=== PATIENT | male | born 1950 | race Caucasian/White ===

== ENCOUNTER 2017-05-13 13:11 | Emergency (ER) | payer OTHER ==
--- NOTE | 2017-05-13 13:39 | EDM.PDOC ---
ED HPI GENERAL MEDICAL PROBLEM - General Chief Complaint: Head Injury Stated Complaint: DIZZINESS/VISION ISSUES Time Seen by Provider: 05/13/17 13:30 Source of Information: Reports: Patient History Limitations: Reports: No Limitations - History of Present Illness INITIAL COMMENTS - FREE TEXT/NARRATIVE: 67-year-old male reports that he is not exactly sure what caused him to either pass out or trip and fall while on his way to the shower at about 1800 hrs. April 24. He states he woke up on the floor and was unsure how he got there. He states alcohol was not involved. He had obviously fallen and suffered injury to his right forehead area neck was very tender and sore particularly on the left side skin and up his left elbow is his ribs. He states he essentially had to lay in bed for the next 3 days due to the severity of the headaches and associated nausea. He never did vomit. After 3 days he was able to tolerate the light a bit better and able to get up and move around. He subsequently states that his vision is transiently blurry at times. He wears glasses only for reading. He said previous cataract surgery bilaterally. States his neck pain is gone away completely. States skin tear on his left elbow is healed up. He continues to have quite severe headaches and this reason that brought him to the ED. He has been taking Motrin and vitamin E for headache relief. He states he can write fine he can read okay. States that it's difficult to concentrate at times. He is driving a motor vehicle with no problems. Onset: Sudden Onset Date: 04/24/17 Onset Time: 18:00 (Unclear what caused him to trip and fall or pass out and hit the floor on his way to the shower in his home.) Duration: Minutes: (He believes he lost consciousness for at least 10 minutes.) Location: Reports: Head, Neck, Upper Extremity, Left (Left elbow) Quality: Reports: Other (Only problem that persists is recurrent severe headaches.) Severity: Severe (Intermittent severe headaches) Improves with: Reports: Medication, Rest (Motrin has been helping. Rest also helps. Massaging his) Worsens with: Reports: Movement (Exertion.) Context: Reports: Trauma (Tripped and fell on his way to the shower or loss consciousness/syncopal event 20 days ago). Denies: Activity, Exercise, Lifting , Sick Contact Associated Symptoms: Reports: Confusion, Nausea/Vomiting, Syncope (Possible reason for him to have passed out and hit the floor outside the shower 20 days ago. Wound was there to witness the event.). Denies: Chest Pain (Initially but this is now better.), Cough, cough w sputum, Diaphoresis, Fever/Chills, Headaches, Loss of Appetite, Malaise, Rash (Is very nauseated for the first 3 days but never did vomit. He has had mild intermittent nausea since but better the last for 5 days.), Seizure, Shortness of Breath Treatments [employer]: Reports: NSAIDS (Typically using Motrin when necessary and vitamin E.) - Related Data Allergies Allergy/AdvReac Type Severity Reaction Status Date / Time No Known Allergies Allergy Verified 05/13/17 13:22 Home Meds: Home Meds Cyclobenzaprine [Flexeril] 1 tab PO Q8HR PRN 05/13/17 [History] FLUoxetine [PROzac] 20 mg PO DAILY 05/13/17 [History] Past Medical History HEENT History: Reports: Glaucoma (Chronic glaucoma), Other (See Below) (Has had bilateral cataract extractions and intraocular lens implants. Also has had bilateral trabeculectomy is for glaucoma and is on to glaucoma medications.) Musculoskeletal History: Reports: Arthritis, Osteoarthritis Social & Family History - Living Situation & Occupation Living situation: Reports: Alone Occupation: Retired ED ROS GENERAL - Review of Systems Review Of Systems: See Below Constitutional: Reports: Malaise, Weakness, Fatigue, Decreased Appetite. Denies : Fever, Chills, Weight Loss HEENT: Reports: Glasses (Transient blurred vision. Wears them occasionally to read.), Vision Change Respiratory: Reports: No Symptoms Cardiovascular: Reports: No Symptoms. Denies: Chest Pain, Blood Pressure Problem ([facility] and has never been told his blood pressures been elevated.), Claudication, Dyspnea on Exertion, Edema, Lightheadedness, Orthopnea Endocrine: Reports: Fatigue GI/Abdominal: Reports: Nausea (Transient nausea after closed head injury but better the last week.) : Reports: Frequency, Other Musculoskeletal: Reports: Joint Pain (Nocturia usually twice tonight per night. Knees hips given intermittent pain.) Skin: Reports: Bruising (Appreciates that he bruises easily. He is not on any blood thinners.) Neurological: Reports: Dizziness, Headache (Headaches are still quite severe particularly temporal and across the frontal). Denies: Confusion, Numbness ( scalp.), Tingling, Tremors, Trouble Speaking, Difficulty Walking, Weakness, Change in Speech, Gait Disturbance Psychiatric: Reports: Mood Lability. Denies: Agitation, Anxiety, Confusion, Cravings, Depression, Homicidal Ideation, Suicidal Ideation Hematologic/Lymphatic: Reports: No Symptoms Immunologic: Reports: No Symptoms (Appreciates that he is on a bit of an emotional roller coaster.) ED EXAM, HEAD INJURY - Physical Exam Exam: See Below Exam Limited By: No Limitations General Appearance: Alert, WD/WN, No Apparent Distress Head: Atraumatic, Normocephalic, Other (No residual swelling or ecchymoses identified on the scalp. Still perhaps a little tender along the temporal scalp on the right side.) Nexus Criteria: No: Posterior, Midline Cervical Tenderness, Evidence of Intoxication, Altered Level of Consciousness, Focal Neurological Deficit, Painful Distraction Injuries Eyes: Bilateral Eye: Normal Inspection (Bilateral cataract extractions and intraocular lenses are apparent.), PERRL Ears: Normal TMs (No blood behind the tympanic membranes.) Throat/Mouth: Normal Lips, Normal Teeth, Normal Oropharynx, Other Neck: Non-Tender (Uvula is midline), Full Range of Motion, Normal Alignment, Normal Inspection Respiratory: No Respiratory Distress, Lungs Clear, Normal Breath Sounds, Chest Non-Tender Cardiovascular: Normal Peripheral Pulses, Regular Rate, Rhythm, No Edema, No Gallop, No Murmur GI/Abdominal Exam: Normal Bowel Sounds, Soft, Non-Tender, No Organomegaly, No Abnormal Bruit, No Mass, Pelvis Stable Back Exam: Normal Inspection, Full Range of Motion. No: CVA Tenderness (L), CVA Tenderness (R) Extremities: Normal Inspection, Normal Range of Motion, Non-Tender, No Pedal Edema, Other (Has a healing wound on his left elbow scab is now gone. There is slight pinkish skin where he suffered a skin tear.) Neurologic: director of strategic sourcing II-XII nml As Tested, No Motor/Sensory Deficits, Alert, Normal Mood/Affect, Oriented x 3, Other (No pronator drift. Finger to nose assessment normal. No pronator drift.) Skin: Normal Color, Warm/Dry - Converse Coma Score Best Eye Response (Kimberly): (4) Open Spontaneously Best Verbal Response (Kimberly): (5) Oriented Best Motor Response (Converse): (6) Obeys Commands Converse Total: 15 Course - Vital Signs Last Recorded V/S: Last Vital Signs Temp 36.4 C 05/13/17 13:19 Pulse 65 05/13/17 13:19 Resp 16 05/13/17 13:19 BP 162/98 H 05/13/17 13:19 Pulse Ox 100 05/13/17 13:19 - Radiology Interpretation Free Text/Narrative:: 67-year-old male attends the ED 20 days post either syncopal event or trip and fall with closed head injury while traveling into his shower at his home. Injury occurred approximate 1800 hrs. April 24. He woke up on the floor and does not know how he got there. He had a large hematoma over his left frontal scalp. He contused his left elbow bruised up his left shoulder and left hip. He also had quite significant cervical neck pain for 3 or 4 days but he states this is subsequently completely cleared up and he has full range of motion. States he's been doing full-body massage as an exercise program to try and improve things. His major problem is persistent severe headaches that are quite intense at times particularly across the temporal frontal scalp. He was nauseated and was in bed for 3 days postinjury suggesting a significant concussion. Is currently he was able to regain his appetite although be it slowly. He denies any neurological deficits in terms that he is able to read written literature, per hand and right. Able to drive his car without any issues. Neuro exam is completely normal. Plan CT head will be done to rule out an occult subdural hematoma. - Re-Assessments/Exams Free Text/Narrative Re-Assessment/Exam: 05/13/17 14:06 CT head is within normal limits showing age-appropriate degenerative changes. There is minimal diminished density noted within the periventricular and subcortical white matter compatible with minimal small vessel ischemic changes. No other parenchymal densities are identified no mass effect no intracranial hemorrhage noted. There is slight mucosal thickening within the paranasal sinuses of the left mastoid. Patient reassured of the CT findings. He is suffering postconcussion syndrome and it's unclear how long he may suffer from chronic headaches. Since they resolve with Motrin he was reassured that he can continue to use this medication on an as-needed basis. He will follow-up with his personal physician or [facility] if any other problems occur. Of note blood pressure was elevated today at 162/98 and it may be due to effect of Motrin on his kidneys. He is advised to have his pressure checked intermittently to make sure that it is not developed hypertension. Departure - Departure Time of Disposition: 14:19 Disposition: Home, Self-Care 01 Condition: Fair Clinical Impression: Concussion injury of brain, Post concussion syndrome - Discharge Information Referrals: Symone Lopez DO [Primary Care Provider] - Forms: ED Department Discharge Additional Instructions: Evaluation in the emergency room today in regards to a significant closed injury that occurred April 24 when you find herself on the floor outside of her shower at her home. It's obvious that you had either fallen or passed out and struck her head hard on the concrete tiled floor with loss of consciousness suspected for about 10 minutes. It's impossible to know for sure is nowas around. Subsequently he developed all of the signs and symptoms of a significant concussion with nausea and headache. Everything has resolved except for the recurrence of headaches which is part of 4-week-old a postconcussive syndrome. A CT of your brain was carried out today and it reveals no evidence of any collection of blood within the brain cavity which we call a subdural hematoma. It shows normal brain tissue in no sign of any cracks in the skull. Therefore it's time to heal and not much else can be done at this time. No one can really say for how long he may suffer chronic headaches after a closed head injury. His usually several months. It is safe to continue to use your Motrin as needed for headache relief. Follow-up with personal doctor if any further problem's occur..
--- NOTE | 2017-05-13 14:02 | CT ---
Head CT Technique: Multiple axial sections through the brain were obtained. Intravenous contrast was not utilized. Comparison: No previous intracranial imaging. Findings: Ventricles along with basal cisterns and sulci over the convexities are mildly prominent. Minimal diminished density is noted within the periventricular and subcortical white matter compatible with minimal small vessel ischemic demyelination change. No other abnormal parenchymal densities are seen. No evidence of intracranial hemorrhage. No midline shift or mass effect is seen. Bone window settings were reviewed which shows minimal mucosal thickening within the inferior left mastoid sinus. Minimal mucosal thickening is noted within the sphenoid sinus as well as ethmoid sinuses. No acute calvarial abnormality is seen. Impression: 1. Slight mucosal thickening within the paranasal sinuses as well as left mastoid sinus which is likely incidental and chronic. 2. Minimal senescent change. 2. No acute intracranial abnormality is seen. Diagnostic code #2
== END 2017-05-13 14:29 | disposition home or self-care (01) ==
LOC: JD.ED 13:11
DX: F07.81 Postconcussional syndrome (principal); W01.0XXA Fall on same level from slipping, tripping and stumbling without subsequent striking against object, initial encounter; Y92.009 Unspecified place in unspecified non-institutional (private) residence as the place of occurrence of the external cause
CPT/HCPCS: 70450; 70450-26; 99283; 99284-25

== ENCOUNTER 2021-07-17 17:10 | Emergency (ER) | payer OTHER ==
[2021-07-17] MEDS ORDERED: Magnesium Citrate Solution 296 ML Bottle PO ONE (20:27)
== END 2021-07-17 22:20 | disposition home or self-care (01) ==
LOC: JD.ED 17:10
DX: K62.89 Other specified diseases of anus and rectum (principal); N40.0 Benign prostatic hyperplasia without lower urinary tract symptoms; N32.0 Bladder-neck obstruction; J44.9 Chronic obstructive pulmonary disease, unspecified; Z72.0 Tobacco use; Z86.16 Personal history of COVID-19
CPT/HCPCS: 36415; 51702; 74177; 80053; 81001; 83605; 83690; 83735; 85025; 99284; A9270

== ENCOUNTER 2022-08-04 10:37 | Emergency (ER) | payer OTHER ==
[2022-08-04] MEDS ORDERED: Meclizine 25 MG Tab PO ONE (11:50)
[2022-08-04] MEDS ORDERED: Sodium Chloride 0.9% 1,000 ML IV ONE (11:50)
== END 2022-08-04 14:17 | disposition home or self-care (01) ==
LOC: JD.ED 10:37
DX: R42 Dizziness and giddiness (principal); R27.0 Ataxia, unspecified; M19.90 Unspecified osteoarthritis, unspecified site; J44.9 Chronic obstructive pulmonary disease, unspecified; Z87.891 Personal history of nicotine dependence
CPT/HCPCS: 36415; 70450; 80053; 81001; 82947; 84484; 85025; 85379; 85610; 85730; 93005; 96360; 99284; A9270; J7030; 93010

== ENCOUNTER 2023-11-03 09:14 | Emergency (ER) | payer OTHER ==
[2023-11-03 11:41] LABS: CORONAVIRUS COVID-19 NAA NEGATIVE (NEGATIVE); INFLUENZA A NAA NEGATIVE (NEGATIVE); RESPIRATORY SYNCYTIAL VIR NAA NEGATIVE (NEGATIVE)
[2023-11-03 11:49] LABS: BASOPHILS ABSOLUTE AUTO 0.1 K/mm3 (0.0-0.2); EOSINOPHILS ABSOLUTE AUTO 0.1 K/mm3 (0.0-0.4); EOSINOPHILS PERCENT AUTO 0.9 % (0.0-6.0); HEMATOCRIT 45.7 % (42.0-52.0); HEMOGLOBIN 15.5 gm/dl (14.0-18.0); IMMATURE GRAN ABSOLUTE AUTO 0.04 K/mm3 (0.00-0.05); IMMATURE GRAN PERCENT AUTO 0.5 % (0.0-0.4); LYMPHOCYTES ABSOLUTE AUTO 2.2 K/mm3 (1.0-4.8); LYMPHOCYTES PERCENT AUTO 26.7 % (24.0-44.0); MEAN CORPUSCULAR HEMOGLOBIN 32.5 pg (28.0-32.0); MEAN CORPUSCULAR HGB CONC 33.9 g/dl (32.0-36.0); MEAN CORPUSCULAR VOLUME 95.8 fl (83.0-99.0); MEAN PLATELET VOLUME 8.4 fl (9.4-12.4); MONOCYTES ABSOLUTE AUTO 0.9 K/mm3 (0.0-0.8); MONOCYTES PERCENT AUTO 11.3 % (0.0-8.0); NEUTROPHILS ABSOLUTE AUTO 4.9 K/mm3 (1.8-7.7); NEUTROPHILS PERCENT AUTO 59.6 % (41.0-71.0); PLATELET COUNT,PLT 317 K/mm3 (150-400); RED BLOOD CELL COUNT 4.77 M/mm3 (4.52-5.90); WHITE BLOOD CELL COUNT,WBC 8.16 K/mm3 (3.9-11.3)
[2023-11-03 11:58] LABS: A/G RATIO 1.1 (1-2); ALBUMIN 3.7 g/dl (3.4-5.0); ANION GAP 12.6 (5-15); BILIRUBIN TOTAL 0.7 mg/dL (0.2-1.0); BUN/CREATININE RATIO 17.5 (14-18); C-REACTIVE PROTEIN 0.13 mg/dL (<0.30); CALCIUM 9.1 mg/dL (8.5-10.1); CREATININE 0.8 mg/dL (0.7-1.3); EST CRCL DRUG DOSING (CG) 52.7 mL/min; POTASSIUM,K 3.6 mEq/L (3.5-5.1); PROTEIN TOTAL,TP 7.1 g/dl (6.4-8.2)
[2023-11-03] MEDS: hydrOXYzine HCl 25 MG Tab PO ONE (12:13)
[2023-11-03] MEDS: Sodium Chloride 0.9% 10 ML Syringe FLUSH PRN (12:14)
[2023-11-03] MEDS: Sodium Chloride 0.9% 1,000 ML IV SCH (12:14)
[2023-11-03 14:07] LABS: APPEARANCE,URINE CLEAR (Clear); BILIRUBIN,URINE NEGATIVE (Negative); COLOR,URINE YELLOW (Yellow); GLUCOSE,URINE NEGATIVE (Negative); KETONES,URINE NEGATIVE (Negative); LEUKOCYTE ESTERASE,URINE NEGATIVE (Negative); NITRITE,URINE NEGATIVE (Negative); OCCULT BLOOD,URINE NEGATIVE (Negative); PROTEIN,URINE NEGATIVE (Negative); UROBILINOGEN,URINE 0.2 (0.2-1.0)
== END 2023-11-03 15:40 | disposition home or self-care (01) ==
LOC: JD.ED 09:14
DX: R53.1 Weakness (principal); F43.10 Post-traumatic stress disorder, unspecified; F17.200 Nicotine dependence, unspecified, uncomplicated; J44.9 Chronic obstructive pulmonary disease, unspecified; Z90.49 Acquired absence of other specified parts of digestive tract; Z86.16 Personal history of COVID-19
CPT/HCPCS: 0241U; 36415; 71045; 80053; 81003; 84484; 85025; 86140; 93005; 96360; 96361; 99285; A9270; J3490; J7030

== ENCOUNTER 2024-07-20 18:11 | Inpatient (IN) | payer OTHER ==
[2024-07-20 19:09] LABS: HEMATOCRIT 36.7 % (42.0-52.0); HEMOGLOBIN 11.4 gm/dl (14.0-18.0); MEAN CORPUSCULAR HEMOGLOBIN 29.3 pg (28.0-32.0); MEAN CORPUSCULAR HGB CONC 31.1 g/dl (32.0-36.0); MEAN CORPUSCULAR VOLUME 94.3 fl (83.0-99.0); MEAN PLATELET VOLUME 8.4 fl (9.4-12.4); PLATELET COUNT,PLT 486 K/mm3 (150-400); RED BLOOD CELL COUNT 3.89 M/mm3 (4.52-5.90); WHITE BLOOD CELL COUNT,WBC 11.91 K/mm3 (3.9-11.3)
[2024-07-20 19:30] LABS: BAND PERCENT MAN 0 % (0-10); BASOPHILS PERCENT MAN 1 (0.2-1.2); EOSINOPHILS PERCENT MAN 2 % (0.8-7.0); LYMPHOCYTES % ATYPICAL MANUAL 0 %; LYMPHOCYTES PERCENT MAN 14 % (20-40); MONOCYTES PERCENT MAN 8 % (2-10); PLATELET COUNT ESTIMATE INCREASED
[2024-07-20 19:39] LABS: A/G RATIO 0.4 (1-2); ANION GAP 12.2 (5-15); BILIRUBIN TOTAL 0.6 mg/dL (0.2-1.0); BUN/CREATININE RATIO 32.9 (14-18); CALCIUM 8.7 mg/dL (8.5-10.1); CREATININE 0.7 mg/dL (0.7-1.3); EST CRCL DRUG DOSING (CG) 43.2 mL/min; MAGNESIUM 1.9 mg/dL (1.8-2.4); POTASSIUM,K 3.2 mEq/L (3.5-5.1); PROTEIN TOTAL,TP 7.7 g/dl (6.4-8.2); TSH 2.204 uIU/mL (0.358-3.74)
[2024-07-20] MEDS: Sodium Chloride 0.9% 1,000 ML IV STA (20:04)
[2024-07-20] MEDS: cefTRIAXone 2 GM Vial IVPUSH ONE (20:05)
[2024-07-20] MEDS: Sodium Chloride 0.9% 10 ML Syringe FLUSH PRN (20:28)
[2024-07-20] MEDS: Sodium Chloride 0.9% 45 ML IV SCH (20:28)
[2024-07-20] MEDS: Iopamidol 755 Mg/ML 100 ML Bottle IVPUSH ONE (20:28)
[2024-07-20 20:39] LABS: APPEARANCE,URINE CLEAR (Clear); BILIRUBIN,URINE NEGATIVE (Negative); COLOR,URINE AMBER (Yellow); GLUCOSE,URINE NEGATIVE (Negative); KETONES,URINE TRACE (Negative); LEUKOCYTE ESTERASE,URINE NEGATIVE (Negative); NITRITE,URINE NEGATIVE (Negative); OCCULT BLOOD,URINE NEGATIVE (Negative); PROTEIN,URINE TRACE (Negative); UROBILINOGEN,URINE 0.2 (0.2-1.0)
[2024-07-20 20:48] LABS: BARBITURATE SCREEN,URINE NEGATIVE (CUTOFF=200); BENZODIAZEPINES SCREEN,URINE NEGATIVE (CUTOFF=150); BUPRENORPHINE SCREEN,URINE NEGATIVE (CUTOFF=10); METHADONE SCREEN, URINE NEGATIVE (CUT0FF=200); METHAMPHETAMINES SCREEN, URINE NEGATIVE (CUTOFF=500); OXYCODONE SCREEN,URINE NEGATIVE (CUT0FF=100); THC SCREEN,URINE 20 NG/ML PRESUMPTIVE POSITIVE (CUTOFF=50)
[2024-07-20 20:50] LABS: AMPHETAMINES SCREEN, URINE NEGATIVE (CUTOFF=500)
[2024-07-20 21:01] LABS: EPITHELIAL CELLS,URINE 0-5 /hpf (0-5); RBC,URINE 0-5 /hpf (0-5); WBC,URINE 0-5 /hpf (0-5)
[2024-07-20 21:02] LABS: BACTERIA,URINE FEW /hpf (FEW); CALCIUM OXALATE CRYSTALS,URINE MODERATE; MUCUS,URINE MANY /hpf (FEW)
[2024-07-20] MEDS: Sodium Chloride 0.9% 100 ML ONE (21:40)
[2024-07-20] MEDS: metroNIDAZOLE/Normal Saline 500 MG in Premix Bag 1 BAG IV SCH (21:40)
[2024-07-21 05:31] LABS: BASOPHILS PERCENT AUTO 0.3 % (0.0-1.0); EOSINOPHILS ABSOLUTE AUTO 0.1 K/mm3 (0.0-0.4); EOSINOPHILS PERCENT AUTO 0.9 % (0.0-6.0); HEMATOCRIT 32.3 % (42.0-52.0); HEMOGLOBIN 10.4 gm/dl (14.0-18.0); IMMATURE GRAN ABSOLUTE AUTO 0.06 K/mm3 (0.00-0.05); IMMATURE GRAN PERCENT AUTO 0.5 % (0.0-0.4); LYMPHOCYTES ABSOLUTE AUTO 1.5 K/mm3 (1.0-4.8); LYMPHOCYTES PERCENT AUTO 13.1 % (24.0-44.0); MEAN CORPUSCULAR HEMOGLOBIN 29.9 pg (28.0-32.0); MEAN CORPUSCULAR HGB CONC 32.2 g/dl (32.0-36.0); MEAN CORPUSCULAR VOLUME 92.8 fl (83.0-99.0); MEAN PLATELET VOLUME 8.7 fl (9.4-12.4); MONOCYTES ABSOLUTE AUTO 1.1 K/mm3 (0.0-0.8); MONOCYTES PERCENT AUTO 9.5 % (0.0-8.0); NEUTROPHILS ABSOLUTE AUTO 8.7 K/mm3 (1.8-7.7); NEUTROPHILS PERCENT AUTO 75.7 % (41.0-71.0); PLATELET COUNT,PLT 460 K/mm3 (150-400); RED BLOOD CELL COUNT 3.48 M/mm3 (4.52-5.90); WHITE BLOOD CELL COUNT,WBC 11.42 K/mm3 (3.9-11.3)
[2024-07-21 05:42] LABS: A/G RATIO 0.3 (1-2); ALBUMIN 1.7 g/dl (3.4-5.0); BILIRUBIN TOTAL 0.3 mg/dL (0.2-1.0); C-REACTIVE PROTEIN 11.99 mg/dL (<0.30); CALCIUM 8.1 mg/dL (8.5-10.1); CREATININE 0.5 mg/dL (0.7-1.3); EST CRCL DRUG DOSING (CG) 75.4 mL/min; PROTEIN TOTAL,TP 6.7 g/dl (6.4-8.2)
[2024-07-21] MEDS ORDERED: Ondansetron 4 MG/2 ML SDV IV PRN (07:30)
[2024-07-21] MEDS ORDERED: Polyethylene Glycol 3350 Powder 17 GM Packet PO PRN (07:30)
[2024-07-21] MEDS: Potassium Chloride 20 MEQ Tab.ER PO SCH (08:16)
[2024-07-21] MEDS: Enoxaparin 40 MG/0.4 ML Syringe SUBCUT SCH (08:16)
[2024-07-21] MEDS: Sodium Chloride 0.9% 1,000 ML IV SCH (12:52)
[2024-07-21] MEDS: metroNIDAZOLE/Normal Saline 500 MG in Premix Bag 1 BAG IV SCH (12:54)
[2024-07-21] MEDS: Acetaminophen 325 MG Tab PO PRN (12:57)
[2024-07-21] MEDS: guaiFENesin 600 MG Tab.ER PO SCH (16:42)
[2024-07-21] MEDS: Melatonin 3 MG Tab PO PRN (20:23)
[2024-07-21] MEDS: cefTRIAXone 2 GM Vial IVPUSH SCH (20:28)
[2024-07-21] MEDS: Dorzolamide/Timolol 2%-0.5% Ophth Soln 10 ML Bottle EYEBOTH SCH (20:41)
[2024-07-22 05:36] LABS: BASOPHILS PERCENT AUTO 0.4 % (0.0-1.0); EOSINOPHILS ABSOLUTE AUTO 0.2 K/mm3 (0.0-0.4); EOSINOPHILS PERCENT AUTO 1.3 % (0.0-6.0); HEMATOCRIT 33.4 % (42.0-52.0); HEMOGLOBIN 10.6 gm/dl (14.0-18.0); IMMATURE GRAN ABSOLUTE AUTO 0.06 K/mm3 (0.00-0.05); IMMATURE GRAN PERCENT AUTO 0.5 % (0.0-0.4); LYMPHOCYTES ABSOLUTE AUTO 1.6 K/mm3 (1.0-4.8); LYMPHOCYTES PERCENT AUTO 13.8 % (24.0-44.0); MEAN CORPUSCULAR HEMOGLOBIN 29.4 pg (28.0-32.0); MEAN CORPUSCULAR HGB CONC 31.7 g/dl (32.0-36.0); MEAN CORPUSCULAR VOLUME 92.8 fl (83.0-99.0); MEAN PLATELET VOLUME 8.8 fl (9.4-12.4); MONOCYTES PERCENT AUTO 8.5 % (0.0-8.0); NEUTROPHILS ABSOLUTE AUTO 8.5 K/mm3 (1.8-7.7); NEUTROPHILS PERCENT AUTO 75.5 % (41.0-71.0); PLATELET COUNT,PLT 453 K/mm3 (150-400); WHITE BLOOD CELL COUNT,WBC 11.23 K/mm3 (3.9-11.3)
[2024-07-22 06:25] LABS: A/G RATIO 0.3 (1-2); ALBUMIN 1.6 g/dl (3.4-5.0); ANION GAP 10.3 (5-15); BILIRUBIN TOTAL 0.4 mg/dL (0.2-1.0); C-REACTIVE PROTEIN 9.26 mg/dL (<0.30); CALCIUM 7.9 mg/dL (8.5-10.1); CREATININE 0.5 mg/dL (0.7-1.3); EST CRCL DRUG DOSING (CG) 76.69 mL/min; MAGNESIUM 1.6 mg/dL (1.8-2.4); PHOSPHORUS 2.4 mg/dL (2.6-4.7); POTASSIUM,K 3.3 mEq/L (3.5-5.1); PROTEIN TOTAL,TP 6.4 g/dl (6.4-8.2)
[2024-07-22] MEDS ORDERED: Dorzolamide/Timolol 2%-0.5% Ophth Soln 10 ML Bottle EYEBOTH SCH (09:00)
[2024-07-22] MEDS: Magnesium Sulf/Wat 2 GM/50 mL 2 GM in Premix Bag 1 BAG IV ONE (10:06)
[2024-07-22] MEDS: Potassium Chloride 20 MEQ Tab.ER PO ONE (10:09)
[2024-07-22] MEDS: Albuterol/Ipratropium 3.0-0.5 MG/3 ML Neb Soln NEB PRN (10:55)
[2024-07-23 05:38] LABS: BASOPHILS ABSOLUTE AUTO 0.1 K/mm3 (0.0-0.2); BASOPHILS PERCENT AUTO 0.6 % (0.0-1.0); EOSINOPHILS ABSOLUTE AUTO 0.2 K/mm3 (0.0-0.4); EOSINOPHILS PERCENT AUTO 1.9 % (0.0-6.0); HEMATOCRIT 34.6 % (42.0-52.0); HEMOGLOBIN 11.1 gm/dl (14.0-18.0); IMMATURE GRAN ABSOLUTE AUTO 0.06 K/mm3 (0.00-0.05); IMMATURE GRAN PERCENT AUTO 0.6 % (0.0-0.4); LYMPHOCYTES ABSOLUTE AUTO 1.8 K/mm3 (1.0-4.8); LYMPHOCYTES PERCENT AUTO 16.9 % (24.0-44.0); MEAN CORPUSCULAR HEMOGLOBIN 29.7 pg (28.0-32.0); MEAN CORPUSCULAR HGB CONC 32.1 g/dl (32.0-36.0); MEAN CORPUSCULAR VOLUME 92.5 fl (83.0-99.0); MEAN PLATELET VOLUME 8.5 fl (9.4-12.4); MONOCYTES ABSOLUTE AUTO 0.9 K/mm3 (0.0-0.8); MONOCYTES PERCENT AUTO 8.6 % (0.0-8.0); NEUTROPHILS ABSOLUTE AUTO 7.5 K/mm3 (1.8-7.7); NEUTROPHILS PERCENT AUTO 71.4 % (41.0-71.0); PLATELET COUNT,PLT 475 K/mm3 (150-400); RED BLOOD CELL COUNT 3.74 M/mm3 (4.52-5.90); WHITE BLOOD CELL COUNT,WBC 10.55 K/mm3 (3.9-11.3)
[2024-07-23 06:04] LABS: A/G RATIO 0.3 (1-2); ALBUMIN 1.5 g/dl (3.4-5.0); ANION GAP 11.4 (5-15); BILIRUBIN TOTAL 0.3 mg/dL (0.2-1.0); C-REACTIVE PROTEIN 7.01 mg/dL (<0.30); CALCIUM 7.6 mg/dL (8.5-10.1); CREATININE 0.5 mg/dL (0.7-1.3); EST CRCL DRUG DOSING (CG) 76.69 mL/min; MAGNESIUM 1.8 mg/dL (1.8-2.4); PHOSPHORUS 1.9 mg/dL (2.6-4.7); POTASSIUM,K 3.4 mEq/L (3.5-5.1); PROTEIN TOTAL,TP 6.3 g/dl (6.4-8.2)
[2024-07-23] MEDS: Potassium Phosphates 30 MMOLE in Sodium Chloride 0.9% 500 ML IV SCH (09:15)
[2024-07-23] MEDS: Nicotine 14 MG/24 Hr Patch TRDERM SCH (16:34)
[2024-07-23] MEDS: Loperamide 2 MG Cap PO PRN (16:36)
[2024-07-23] MEDS: Mirtazapine 15 MG Tab PO SCH (20:18)
[2024-07-24 04:26] LABS: BASOPHILS ABSOLUTE AUTO 0.1 K/mm3 (0.0-0.2); BASOPHILS PERCENT AUTO 0.5 % (0.0-1.0); EOSINOPHILS ABSOLUTE AUTO 0.3 K/mm3 (0.0-0.4); EOSINOPHILS PERCENT AUTO 2.6 % (0.0-6.0); HEMATOCRIT 36.8 % (42.0-52.0); HEMOGLOBIN 11.9 gm/dl (14.0-18.0); LYMPHOCYTES ABSOLUTE AUTO 1.7 K/mm3 (1.0-4.8); LYMPHOCYTES PERCENT AUTO 17.4 % (24.0-44.0); MEAN CORPUSCULAR HEMOGLOBIN 29.5 pg (28.0-32.0); MEAN CORPUSCULAR HGB CONC 32.3 g/dl (32.0-36.0); MEAN CORPUSCULAR VOLUME 91.1 fl (83.0-99.0); MEAN PLATELET VOLUME 8.4 fl (9.4-12.4); MONOCYTES ABSOLUTE AUTO 0.8 K/mm3 (0.0-0.8); MONOCYTES PERCENT AUTO 8.3 % (0.0-8.0); NEUTROPHILS ABSOLUTE AUTO 6.8 K/mm3 (1.8-7.7); NEUTROPHILS PERCENT AUTO 70.2 % (41.0-71.0); PLATELET COUNT,PLT 462 K/mm3 (150-400); RED BLOOD CELL COUNT 4.04 M/mm3 (4.52-5.90); WHITE BLOOD CELL COUNT,WBC 9.72 K/mm3 (3.9-11.3)
[2024-07-24 05:17] LABS: A/G RATIO 0.3 (1-2); ALBUMIN 1.5 g/dl (3.4-5.0); ANION GAP 14.3 (5-15); BILIRUBIN TOTAL 0.3 mg/dL (0.2-1.0); C-REACTIVE PROTEIN 5.46 mg/dL (<0.30); CALCIUM 7.7 mg/dL (8.5-10.1); CREATININE 0.5 mg/dL (0.7-1.3); EST CRCL DRUG DOSING (CG) 76.61 mL/min; MAGNESIUM 1.8 mg/dL (1.8-2.4); PHOSPHORUS 2.3 mg/dL (2.6-4.7); POTASSIUM,K 3.3 mEq/L (3.5-5.1); PROTEIN TOTAL,TP 6.2 g/dl (6.4-8.2)
[2024-07-24] MEDS: Potassium Phosphates 30 MMOLE in Sodium Chloride 0.9% 500 ML IV ONE (09:13)
[2024-07-24] MEDS: Iron Polysaccharides Complex 150 MG Cap PO SCH (09:16)
[2024-07-24] MEDS: Nicotine 14 MG/24 Hr Patch TRDERM SCH (09:17)
[2024-07-24] MEDS ORDERED: Nicotine 14 MG/24 Hr Patch TRDERM SCH (16:00)
[2024-07-25 05:40] LABS: A/G RATIO 0.4 (1-2); ALBUMIN 1.6 g/dl (3.4-5.0); ANION GAP 12.2 (5-15); BILIRUBIN TOTAL 0.3 mg/dL (0.2-1.0); C-REACTIVE PROTEIN 5.9 mg/dL (<0.30); CALCIUM 7.6 mg/dL (8.5-10.1); CREATININE 0.4 mg/dL (0.7-1.3); EST CRCL DRUG DOSING (CG) 101.4 mL/min; MAGNESIUM 1.7 mg/dL (1.8-2.4); POTASSIUM,K 3.2 mEq/L (3.5-5.1); PROTEIN TOTAL,TP 6.2 g/dl (6.4-8.2)
[2024-07-25] MEDS: Magnesium Sulfat/D5W 1GM/100ML 1 GM in Premix Bag 1 BAG IV SCH (07:38)
[2024-07-25] MEDS: Magnesium Sulf/Wat 2 GM/50 mL 2 GM/50 ML BAG IV ONE (08:04)
[2024-07-25] MEDS: Potassium Phosphates 30 MMOLE in Sodium Chloride 0.9% 500 ML IV ONE (09:28)
[2024-07-26 04:32] LABS: A/G RATIO 0.4 (1-2); ALBUMIN 1.6 g/dl (3.4-5.0); ANION GAP 10.7 (5-15); BILIRUBIN TOTAL 0.2 mg/dL (0.2-1.0); BUN/CREATININE RATIO 8.3 (14-18); C-REACTIVE PROTEIN 5.6 mg/dL (<0.30); CALCIUM 7.5 mg/dL (8.5-10.1); CREATININE 0.6 mg/dL (0.7-1.3); MAGNESIUM 1.9 mg/dL (1.8-2.4); PHOSPHORUS 2.2 mg/dL (2.6-4.7); POTASSIUM,K 3.7 mEq/L (3.5-5.1); PROTEIN TOTAL,TP 6.2 g/dl (6.4-8.2)
[2024-07-26 05:32] LABS: EST CRCL DRUG DOSING (CG) 64.24 mL/min
[2024-07-26] MEDS: Potassium Phosphates 30 MMOLE in Sodium Chloride 0.9% 500 ML IV ONE (08:56)
[2024-07-26] MEDS: Lidocaine 4% Patch TOP SCH (15:38)
[2024-07-27 05:06] LABS: A/G RATIO 0.4 (1-2); ALBUMIN 1.7 g/dl (3.4-5.0); ANION GAP 10.5 (5-15); BILIRUBIN TOTAL 0.3 mg/dL (0.2-1.0); C-REACTIVE PROTEIN 4.59 mg/dL (<0.30); CALCIUM 7.7 mg/dL (8.5-10.1); CREATININE 0.5 mg/dL (0.7-1.3); EST CRCL DRUG DOSING (CG) 77.09 mL/min; MAGNESIUM 1.8 mg/dL (1.8-2.4); PHOSPHORUS 2.1 mg/dL (2.6-4.7); POTASSIUM,K 3.5 mEq/L (3.5-5.1); PROTEIN TOTAL,TP 6.3 g/dl (6.4-8.2)
[2024-07-27] MEDS: Sodium Phosphate 30 MMOLE in Sodium Chloride 0.9% 250 ML IV ONE (07:55)
[2024-07-28 06:18] LABS: A/G RATIO 0.4 (1-2); ALBUMIN 1.7 g/dl (3.4-5.0); ANION GAP 9.4 (5-15); BILIRUBIN TOTAL 0.3 mg/dL (0.2-1.0); BUN/CREATININE RATIO 12.9 (14-18); CALCIUM 8.2 mg/dL (8.5-10.1); CREATININE 0.7 mg/dL (0.7-1.3); EST CRCL DRUG DOSING (CG) 56.97 mL/min; MAGNESIUM 1.7 mg/dL (1.8-2.4); PHOSPHORUS 2.3 mg/dL (2.6-4.7); POTASSIUM,K 3.4 mEq/L (3.5-5.1); PROTEIN TOTAL,TP 6.6 g/dl (6.4-8.2)
[2024-07-28] MEDS: Magnesium Sulf/Wat 4 GM/50 mL 4 GM in Premix Bag 1 BAG IV ONE (15:27)
[2024-07-28] MEDS: Potassium Chloride 20 MEQ Tab.ER PO ONE (15:31)
[2024-07-28] MEDS: Phosphorus #1 250 MG Tab PO ONE (15:32)
[2024-07-28] MEDS ORDERED: guaiFENesin 100 MG/5 ML Soln 10 ML UD Cup PO PRN (20:15)
[2024-07-29 05:59] LABS: A/G RATIO 0.4 (1-2); ALBUMIN 1.7 g/dl (3.4-5.0); ANION GAP 9.2 (5-15); BILIRUBIN TOTAL 0.3 mg/dL (0.2-1.0); BUN/CREATININE RATIO 13.3 (14-18); CREATININE 0.6 mg/dL (0.7-1.3); EST CRCL DRUG DOSING (CG) 67.2 mL/min; MAGNESIUM 2.3 mg/dL (1.8-2.4); PHOSPHORUS 2.5 mg/dL (2.6-4.7); POTASSIUM,K 4.2 mEq/L (3.5-5.1); PROTEIN TOTAL,TP 6.6 g/dl (6.4-8.2)
[2024-07-29] MEDS: Sodium Phosphate 30 MMOLE in Sodium Chloride 0.9% 250 ML IV ONE (10:03)
== END 2024-07-30 11:26 | DRG 193 ==
LOC: JD.ED 18:11 → JD.MS 21:22
PROVIDERS: ADMIT Family Medicine; ATTEND Family Medicine
DX: J85.0 Gangrene and necrosis of lung (principal); R62.7 Adult failure to thrive; R53.1 Weakness; Z79.899 Other long term (current) drug therapy; J18.9 Pneumonia, unspecified organism; E43 Unspecified severe protein-calorie malnutrition; I96 Gangrene, not elsewhere classified; Z68.1 Body mass index [BMI] 19.9 or less, adult; J44.0 Chronic obstructive pulmonary disease with (acute) lower respiratory infection; N20.1 Calculus of ureter; Z66 Do not resuscitate; J43.9 Emphysema, unspecified; H40.9 Unspecified glaucoma; M19.90 Unspecified osteoarthritis, unspecified site; F41.9 Anxiety disorder, unspecified; F32.A Depression, unspecified; F43.10 Post-traumatic stress disorder, unspecified; R26.0 Ataxic gait; F15.90 Other stimulant use, unspecified, uncomplicated; F12.90 Cannabis use, unspecified, uncomplicated; E86.0 Dehydration; K80.20 Calculus of gallbladder without cholecystitis without obstruction; J44.89 Other specified chronic obstructive pulmonary disease; G47.30 Sleep apnea, unspecified; R13.10 Dysphagia, unspecified; E87.6 Hypokalemia; E83.42 Hypomagnesemia; E83.39 Other disorders of phosphorus metabolism; Z74.01 Bed confinement status; Z86.16 Personal history of COVID-19; Z90.89 Acquired absence of other organs; Z90.49 Acquired absence of other specified parts of digestive tract; Z98.890 Other specified postprocedural states; Z87.891 Personal history of nicotine dependence
CPT/HCPCS: 36415; 71045; 71275; 80053; 80143; 80179; 80306; 80307; 81001; 83605; 83735; 84443; 85007; 85027; 86140; 87428; 93005; 96361; 96374; 99285; J0696; J7030; Q9967; 82550; 82947; 83540; 84100; 85025; 87040; 92610-GN; 94640; 94667; 94668; 94760; 94761; 97110-GP; 97161-GP; A9270-GY; J1650; J1836; J3475; J3490; J7040

== ENCOUNTER 2024-11-03 00:20 | Inpatient (IN) | payer OTHER ==
[2024-11-03] MEDS ORDERED: Sodium Chloride 0.9% 10 ML Syringe FLUSH PRN (00:58)
[2024-11-03 01:18] LABS: BASOPHILS ABSOLUTE AUTO 0.1 K/mm3 (0.0-0.2); BASOPHILS PERCENT AUTO 1.2 % (0.0-1.0); EOSINOPHILS ABSOLUTE AUTO 0.3 K/mm3 (0.0-0.4); EOSINOPHILS PERCENT AUTO 5.8 % (0.0-6.0); IMMATURE GRAN ABSOLUTE AUTO 0.04 K/mm3 (0.00-0.05); IMMATURE GRAN PERCENT AUTO 0.7 % (0.0-0.4); LYMPHOCYTES ABSOLUTE AUTO 1.5 K/mm3 (1.0-4.8); LYMPHOCYTES PERCENT AUTO 25.5 % (24.0-44.0); MEAN PLATELET VOLUME 8.9 fl (9.4-12.4); MONOCYTES ABSOLUTE AUTO 0.6 K/mm3 (0.0-0.8); MONOCYTES PERCENT AUTO 10.1 % (0.0-8.0); NEUTROPHILS ABSOLUTE AUTO 3.3 K/mm3 (1.8-7.7); NEUTROPHILS PERCENT AUTO 56.7 % (41.0-71.0); NRBC ABSOLUTE 0.00 (0.00-0.02); NRBC PERCENT 0.0 % (0.0-0.2); PLATELET COUNT,PLT 286 K/mm3 (150-400); RED BLOOD CELL COUNT 4.78 M/mm3 (4.52-5.90); WHITE BLOOD CELL COUNT,WBC 5.85 K/mm3 (3.9-11.3)
[2024-11-03 01:32] LABS: APPEARANCE,URINE SLT CLOUDY (Clear); GLUCOSE,URINE NEGATIVE (Negative); OCCULT BLOOD,URINE NEGATIVE (Negative)
[2024-11-03 01:42] LABS: LACTIC ACID 1.3 mmol/L (0.4-2.0)
[2024-11-03 01:49] LABS: A/G RATIO 0.6 (1-2); ALANINE AMINOTRANSFERASE,ALT 41.0 U/L (16-63); ASPARTATE AMNIOTRANSFERASE,AST 35.0 U/L (15-37); BILIRUBIN TOTAL 0.5 mg/dL (0.2-1.0); BLOOD UREA NITROGEN,BUN 20.0 mg/dL (7-18); CARBON DIOXIDE,CO2 29.0 mEq/L (21-32); CHLORIDE,CL 102.0 mEq/L (98-107); CREATININE 0.7 mg/dL (0.7-1.3); EST CRCL DRUG DOSING (CG) 58.87 mL/min; ESTIMATED GFR 95.0 mL/min (>60); GLUCOSE RANDOM 136.0 mg/dL (70-99); POTASSIUM,K 3.7 mEq/L (3.5-5.1); PROTEIN TOTAL,TP 7.5 g/dl (6.4-8.2); SODIUM,NA 137.0 mEq/L (136-145); TROPONIN I HIGH SENSITIVITY 11.0 pg/mL (<=76)
[2024-11-03] MEDS ORDERED: Acetaminophen/HYDROcodone 325-5 MG Tab PO PRN (03:56)
[2024-11-03] MEDS ORDERED: Ketorolac 30 MG/ML SDV IV PRN (03:56)
[2024-11-03] MEDS ORDERED: Ondansetron 4 MG Tab.DIS PO PRN (03:56)
[2024-11-03] MEDS: Furosemide 40 MG/4 ML VIAL IVPUSH ONE (04:00)
[2024-11-03] MEDS: Sodium Chloride 0.9% 10 ML Syringe FLUSH PRN (04:05)
[2024-11-03] MEDS: Iopamidol 755 Mg/ML 100 ML Bottle IVPUSH ONE (04:05)
[2024-11-03 04:23] LABS: BASOPHILS ABSOLUTE AUTO 0.1 K/mm3 (0.0-0.2); BASOPHILS PERCENT AUTO 0.6 % (0.0-1.0); EOSINOPHILS ABSOLUTE AUTO 0.3 K/mm3 (0.0-0.4); EOSINOPHILS PERCENT AUTO 2.7 % (0.0-6.0); IMMATURE GRAN ABSOLUTE AUTO 0.07 K/mm3 (0.00-0.05); IMMATURE GRAN PERCENT AUTO 0.6 % (0.0-0.4); LYMPHOCYTES ABSOLUTE AUTO 1.6 K/mm3 (1.0-4.8); LYMPHOCYTES PERCENT AUTO 14.8 % (24.0-44.0); MEAN PLATELET VOLUME 9.1 fl (9.4-12.4); MONOCYTES ABSOLUTE AUTO 0.9 K/mm3 (0.0-0.8); MONOCYTES PERCENT AUTO 8.4 % (0.0-8.0); NEUTROPHILS ABSOLUTE AUTO 7.9 K/mm3 (1.8-7.7); NEUTROPHILS PERCENT AUTO 72.9 % (41.0-71.0); NRBC ABSOLUTE 0.00 (0.00-0.02); NRBC PERCENT 0.0 % (0.0-0.2); PLATELET COUNT,PLT 315 K/mm3 (150-400); RED BLOOD CELL COUNT 4.68 M/mm3 (4.52-5.90); WHITE BLOOD CELL COUNT,WBC 10.85 K/mm3 (3.9-11.3)
[2024-11-03 04:53] LABS: A/G RATIO 0.6 (1-2); ALANINE AMINOTRANSFERASE,ALT 37.0 U/L (16-63); ASPARTATE AMNIOTRANSFERASE,AST 31.0 U/L (15-37); BILIRUBIN TOTAL 0.4 mg/dL (0.2-1.0); BLOOD UREA NITROGEN,BUN 17.0 mg/dL (7-18); CARBON DIOXIDE,CO2 30.0 mEq/L (21-32); CHLORIDE,CL 100.0 mEq/L (98-107); CREATININE 0.5 mg/dL (0.7-1.3); EST CRCL DRUG DOSING (CG) 82.41 mL/min; ESTIMATED GFR 106.0 mL/min (>60); GLUCOSE RANDOM 91.0 mg/dL (70-99); POTASSIUM,K 3.8 mEq/L (3.5-5.1); PROTEIN TOTAL,TP 7.6 g/dl (6.4-8.2); SODIUM,NA 136.0 mEq/L (136-145)
[2024-11-03] MEDS: methylPREDNISolone Sodium Succinate 40 MG/1 ML SDV IVPUSH SCH (11:55)
[2024-11-03] MEDS: metroNIDAZOLE/Normal Saline 500 MG in Premix Bag 1 BAG IV SCH (12:30)
[2024-11-04 05:55] LABS: BASOPHILS ABSOLUTE AUTO 0.0 K/mm3 (0.0-0.2); BASOPHILS PERCENT AUTO 0.3 % (0.0-1.0); EOSINOPHILS ABSOLUTE AUTO 0.0 K/mm3 (0.0-0.4); EOSINOPHILS PERCENT AUTO 0.1 % (0.0-6.0); IMMATURE GRAN ABSOLUTE AUTO 0.06 K/mm3 (0.00-0.05); IMMATURE GRAN PERCENT AUTO 0.6 % (0.0-0.4); LYMPHOCYTES ABSOLUTE AUTO 1.8 K/mm3 (1.0-4.8); LYMPHOCYTES PERCENT AUTO 19.3 % (24.0-44.0); MEAN PLATELET VOLUME 9.5 fl (9.4-12.4); MONOCYTES ABSOLUTE AUTO 0.9 K/mm3 (0.0-0.8); MONOCYTES PERCENT AUTO 9.6 % (0.0-8.0); NEUTROPHILS ABSOLUTE AUTO 6.7 K/mm3 (1.8-7.7); NEUTROPHILS PERCENT AUTO 70.1 % (41.0-71.0); NRBC ABSOLUTE 0.00 (0.00-0.02); NRBC PERCENT 0.0 % (0.0-0.2); PLATELET COUNT,PLT 264 K/mm3 (150-400); RED BLOOD CELL COUNT 4.00 M/mm3 (4.52-5.90); WHITE BLOOD CELL COUNT,WBC 9.52 K/mm3 (3.9-11.3)
[2024-11-04 05:57] LABS: BLOOD UREA NITROGEN,BUN 25.0 mg/dL (7-18); CARBON DIOXIDE,CO2 26.0 mEq/L (21-32); CHLORIDE,CL 103.0 mEq/L (98-107); CREATININE 0.7 mg/dL (0.7-1.3); EST CRCL DRUG DOSING (CG) 59.56 mL/min; ESTIMATED GFR 95.0 mL/min (>60); GLUCOSE RANDOM 141.0 mg/dL (70-99); POTASSIUM,K 3.9 mEq/L (3.5-5.1); SODIUM,NA 137.0 mEq/L (136-145)
== END 2024-11-04 14:07 | DRG 193 ==
LOC: JD.ED 00:20 → JD.MS 04:01
PROVIDERS: ADMIT Family Medicine; ATTEND Family Medicine
DX: J69.0 Pneumonitis due to inhalation of food and vomit (principal); J18.9 Pneumonia, unspecified organism; J96.00 Acute respiratory failure, unspecified whether with hypoxia or hypercapnia; E43 Unspecified severe protein-calorie malnutrition; J44.1 Chronic obstructive pulmonary disease with (acute) exacerbation; J44.0 Chronic obstructive pulmonary disease with (acute) lower respiratory infection; Z68.1 Body mass index [BMI] 19.9 or less, adult; J43.9 Emphysema, unspecified; Z66 Do not resuscitate; G47.30 Sleep apnea, unspecified; M19.90 Unspecified osteoarthritis, unspecified site; F41.9 Anxiety disorder, unspecified; F32.A Depression, unspecified; F43.10 Post-traumatic stress disorder, unspecified; E87.70 Fluid overload, unspecified; R26.2 Difficulty in walking, not elsewhere classified; D50.9 Iron deficiency anemia, unspecified; H40.9 Unspecified glaucoma; J44.9 Chronic obstructive pulmonary disease, unspecified; R13.10 Dysphagia, unspecified; Z86.16 Personal history of COVID-19; Z79.52 Long term (current) use of systemic steroids; Z90.89 Acquired absence of other organs; Z90.49 Acquired absence of other specified parts of digestive tract; E86.9 Volume depletion, unspecified; Z98.890 Other specified postprocedural states; Z79.899 Other long term (current) drug therapy; Z87.891 Personal history of nicotine dependence
CPT/HCPCS: 36415; 71045; 71275; 80053; 81003; 83605; 83735; 83880; 84484; 85025; 93005; 99285; J0456; J0696; J1938; J7050; 80048; 86140; 87040; 87070; 87205; 93010; 94640; 94761; 99223; 99239; A9270-GY; J0692; J1836; J2919; J7030; Q9967